=== PATIENT | female | born 1955 | race Caucasian/White ===

== ENCOUNTER 2017-07-06 21:53 | Inpatient (IN) | payer OTHER, MEDICARE ==
[~2017-07-06 21:53] MED LIST: ISOVUE-370 76%-LOCM 1 ML ONE
[2017-07-06] MEDS ORDERED: Clindamycin/D5W 900 mg/50 ml Premix Bag ONE (23:55)
[2017-07-07 01:17] VITALS: BMI 32.5
[2017-07-07] MEDS ORDERED: Ondansetron ODT 4 MG TAB SL PRN (01:43)
[2017-07-07] MEDS ORDERED: Ondansetron HCl/PF 4 MG/2 ML Vial IVP PRN (01:43)
[2017-07-07] MEDS ORDERED: Sodium Chloride 0.9% 1,000 ML IV SCH (01:45)
[2017-07-07] MEDS ORDERED: Acetaminophen 650 MG Suppository PR PRN (03:03)
[2017-07-07] MEDS: Sodium Chloride 0.9% 1,000 ML IV SCH ×2 (03:22→14:32)
[2017-07-07] MEDS: Morphine PF 1 MG/ML SYR IVP PRN ×2 (03:30→11:16)
[2017-07-07] MEDS: Acetaminophen 325 MG TAB PO PRN ×4 (03:36→22:24)
--- NOTE | 2017-07-07 04:58 | HP ---
PRIMARY CARE PHYSICIAN: Dr. Donna Che in [place], [place]. CHIEF COMPLAINT: Jaw swelling. HISTORY OF PRESENT ILLNESS: Ms. Cardoza is a pleasant 61-year-old lady, who was seen at [facility] on 07/07/2017 following transfer from the emergency room at [facility]. She reports that she has had swelling of her jaw for the last 5 days. She was started on Bactrim-DS. Shortly after starting Bactrim, she developed nausea, vomiting, and diarrhea. She reports multiple bowel movements a day. She denies any current fevers, but reports that she may have had fevers over the couple of days. She denies any chest pain or shortness of breath. She went to the emergency room at [facility]. She had drainage of her abscess, but it was incomplete. She was transferred here for further management. She reports pain over the jaw, dull and aching, 7/10, nonradiating, accompanied by nausea and vomiting. No known aggravating or relieving factors. REVIEW OF SYSTEMS: The following complete review of systems was negative, unless otherwise mentioned in the HPI or below: Constitutional: Weight loss or gain, sense of well-being, ability to conduct usual activities, exercise tolerance. Skin/Breast: Rash, itching, changes in hair growth or loss, nail changes, breast lumps, tenderness, swelling, nipple discharge. Eyes: Vision, double vision, tearing, blind spots, pain. ENT/Mouth: Headaches (location, time of onset, duration, precipitating factors) , vertigo, lightheadedness, injury. Vision, double vision, tearing, blind spots , pain, nose bleeding, colds, obstruction, discharge, dental difficulties, gingival bleeding, dentures, neck stiffness, pain, tenderness, masses in thyroid or other areas. Cardiovascular: Precordial pain, substernal distress, palpitations, syncope, dyspnea on exertion, orthopnea, nocturnal paroxysmal dyspnea, edema, cyanosis, hypertension, heart murmurs, varicosities, phlebitis, claudication. Respiratory: Pain, shortness of breath, wheezing, stridor, cough, hemoptysis, fever or night sweats. Gastrointestinal: Poor appetite, dysphagia, indigestion, abdominal pain, heartburn, eructation, nausea, vomiting, hematemesis, jaundice, constipation, or diarrhea, abnormal stools (isreal-colored, tarry, bloody, greasy, foul smelling ), flatulence, hemorrhoids, recent changes in bowel habits. Genitourinary: Urgency, frequency, dysuria, nocturia, hematuria, polyuria, oliguria, unusual (or change in) color of urine, stones, hesitancy, change in size of stream, dribbling, acute retention or incontinence, libido, potency. Musculoskeletal: Pain, swelling, redness or heat of muscles or joints, limitation of motion, muscular weakness, atrophy, cramps. Neurologic/Psychiatric: Convulsions, paralyses, tremor, incoordination, paresthesias, difficulties with memory of speech, sensory or motor disturbances , or muscular coordination (ataxia, tremor), emotional problems, anxiety, depression, previous psychiatric care, unusual perceptions, hallucinations. Allergy/Immunologic: Skin rash, anemia, bleeding tendency, polydipsia, polyuria , intolerance to heat or cold. PAST MEDICAL HISTORY: Significant for hypothyroidism, dyslipidemia. PAST SURGICAL HISTORY: Significant for bilateral eye surgery and hysterectomy. PSYCHIATRIC HISTORY: Significant for anxiety. SOCIAL HISTORY: The patient denies any current tobacco use, alcohol use, or recreational drug use. FAMILY HISTORY: No family history of coronary artery disease. ALLERGIES: No known drug allergies. CURRENT MEDICATIONS: Atorvastatin 40 mg daily, levothyroxine 75 mcg daily, Lexapro 10 mg daily, fenofibrate 160 mg daily. PHYSICAL EXAMINATION: GENERAL: Ms. Cardoza is awake and alert, not in acute distress. VITAL SIGNS: Blood pressure is 121/63, pulse is 84. She is breathing at rate of 16, and saturating 96% on room air. Her T-max in the emergency room was 99 degrees Fahrenheit. EYES: No scleral icterus. No conjunctival pallor. ENT: Dry mucosal membranes, no oropharyngeal erythema or exudates. NECK: Supple, nontender, normal range of movement. Trachea is midline. RESPIRATORY: Accessory muscles of breathing are not active. Chest wall movements are symmetric bilaterally. LUNGS: Clear to auscultation without wheeze, rhonchi, or crepitations. CARDIOVASCULAR: S1 and S2 are heard, regular. Peripheral pulses are palpable. No carotid bruit, no pericardial rub. ABDOMEN: Soft, nontender, bowel sounds are heard, no hepatomegaly, no splenomegaly. NEUROLOGIC: Cranial nerves II through XII are intact. Deep tendon reflexes are 2+. MUSCULOSKELETAL: Power is 5/5 in all 4 extremities. Normal range of movement at all major extremity joints. LYMPHATIC: No cervical lymphadenopathy. SKIN: Abscess over her jaw, draining pus. No other rashes or subcutaneous nodules. PSYCHIATRIC: Normal mood, normal affect. Patient is oriented to person, place , and time. LABORATORY DATA: Ms. Cardoza's labs and investigations were reviewed. She has a normal white count, hemoglobin 13.9, and platelet count 329,000. Sodium and potassium are normal. She has a decreased carbon dioxide of 17 and elevated blood urea nitrogen of 23. Creatinine is elevated at 1.15. Total bilirubin is normal. AST and ALT are elevated at 38 and 58. Alkaline phosphatase level is normal. ASSESSMENT AND PLAN: Ms. Cardoza is a pleasant 61-year-old lady, who was seen at [facility] on 07/07/2017. Her problem list includes: 1. Jaw abscess: Ms. Cardoza will be admitted to the hospital. Her case has been discussed by the emergency room physician with oral maxillofacial surgeon, who has recommended the patient be started on clindamycin. She has already received a dose of clindamycin. She also had a CT scan of the neck, report is pending. 2. Nausea and vomiting: This appears to have improved. 3. Diarrhea: It started after she was started on antibiotics. We will check stool cultures and Clostridium difficile screen. 4. Abnormal liver function tests: Isolated transaminitis, likely secondary to rhabdomyolysis. We will recheck liver function tests and check her CK level as well. 5. Dyslipidemia: Continue statins for now. 6. Hypothyroidism: Appears to be stable, continue Synthroid. Many thanks for allowing me to participate in your patient's care. Please feel free to contact me with any questions or concerns. LEVEL OF RISK: Moderate. LEVEL OF COMPLEXITY: Moderate. MTDD
[2017-07-07 05:25] LABS: #Basophils 0.1 thou/uL (0.0-0.2); #Eosinphils 0.1 thou/uL (0.0-0.7); #Lymphocytes 2.4 thou/uL (1.20-3.40); #Monocytes 0.5 thou/uL (0.11-0.59); #Neutrophils 2.9 thou/uL (1.40-6.50); %Basophils 1.4 % (0.0-1.0); %Eosinophils 1.7 % (0.0-10.0); %Lymphocytes 40.6 % (21.0-51.0); %Monocytes 8.5 % (0.0-10.0); Hematocrit 34.3 % (36.0-47.0); Mean Platelet Volume 6.8 fL (7.4-10.4); Red Blood Cell (RBC) Count 3.68 mill/uL (4.20-5.40)
[2017-07-07 05:41] LABS: Anion Gap 11 mmol/L (10-20); BUN (Urea Nitrogen) 21 mg/dL (9.8-20.1); Calc. Creatinine Clearance 94 mL/min (70-130); Calcium 8.8 mg/dL (7.8-10.44); Carbon Dioxide 22 mmol/L (22-29); Chloride 108 mmol/L (98-107); Estimated GFR-MDRD 68
[2017-07-07 06:05] LABS: ALT (SGPT) 41 U/L (8-55); AST (SGOT) 27 U/L (5-34); Alkaline Phosphatase 62 U/L (40-150); Bilirubin, Direct 0.2 mg/dL (0.1-0.3); Bilirubin, Total 0.4 mg/dL (0.2-1.2); CK (CPK) 88 U/L (29-168); Protein, Total 6.5 g/dL (6.0-8.3)
[2017-07-07] MEDS: Clindamycin/D5W 900 MG in Premix Bag 1 BAG IVPB SCH ×3 (06:28→22:19)
[2017-07-07] MEDS: Enoxaparin Sodium 40 MG/0.4 ML SYRINGE SC SCH (08:38)
--- NOTE | 2017-07-07 10:25 | PDOC.EVN ---
Event Note - Event Note Event Note: Pt seen earlier on rounds. mental sbcess examined, imaging reviewed. OMFS consult already enetered. Pt tolerating clinda ok. will followup on results
--- NOTE | 2017-07-07 10:41 | CT ---
PRELIMINARY REPORT/[facility]/EMERGENCY AFTER HOURS PROCEDURE: EXAM: CT Neck With Intravenous Contrast CLINICAL HISTORY: 61 years old, female; Signs and symptoms; Abscess, cutaneous; Patient HX: Chin abscess TECHNIQUE: Axial computed tomography images of the neck with intravenous contrast. CONTRAST: 70 mL of ISOVUE administered intravenously. COMPARISON: No relevant prior studies available. FINDINGS: Nasopharynx: Normal. Oropharynx: Normal. No significant tonsillar enlargement. No peritonsillar abscess. Hypopharynx: Normal. Larynx: Normal. Normal epiglottis. Trachea: Normal. Retropharyngeal space: Normal. Submandibular/parotid glands: Normal. Glands are normal in size. Thyroid: Enlarged thyroid gland, extending inferiorly into the anterior mediastinum, without definite focal nodules. Bones/joints: No acute fracture. Soft tissues: Increased attenuation in the right anterior mandibular subcutaneous tissue, with minima l overlying skin thickening and irregularity, most compatible with infection/cellulitis. No abscess. Vasculature: Normal. Lymph nodes: Several small lymph nodes within the anterior and posterior cervical chains, likely reac tive. Sinuses: Left maxillary sinusitis. Lung apices: Normal as visualized. IMPRESSION: 1. Increased attenuation in the right anterior mandibular subcutaneous tissue, with minimal overlying skin thickening and irregularity, most compatible with infection/cellulitis. No abscess. 2. Enlarged thyroid gland, extending inferiorly into the anterior mediastinum, without definite focal nodules. Consider further evaluation with sonography. 3. Incidental/non-acute findings are described above. Thank you for allowing us to participate in the care of your patient. Dictated and Authenticated by: Nolberto Hurt MD 07/07/2017 12:49 AM Central Time ([place] & [place]) FINAL REPORT CT OF THE NECK WITH IV CONTRAST: Date: 07/07/17 COMPARISON: None. HISTORY: Pain and swelling in the region of the chin, assess for abscess. FINDINGS: I agree with the preliminary [facility] report. There is partial opacification of the maxillary sinus on the left. There are a few opacified inferior mastoid air cells on the right. Retroantral and parapharyngeal fat is clear bilaterally. The parotid and submandibular glands are grossly unremarkable. The tonsillar pillars, oral cavity, epiglottis, and preepiglottic fat, hyoid bone, cricoid cartilage, and region of the thyroid cartilage appear unremarkable. Thyroid gland is enlarged with a component which extends into the superior mediastinum anteriorly. There is a focal area of prominent soft tissue swelling with skin thickening and stranding of the sub cutaneous fat anteriorly in the perimandibular region on the right just off midline. There is no asso ciated abscess seen. There is a focal area of outward convexity in the region of the skin surface sug gesting an associated cutaneous abnormality. Findings are most consistent with an inflammatory/infect ious cellulitic process. This does not appear to be odontogenic in nature. Mildly prominent bilateral Level IIA lymph nodes are noted, right greater than left, likely reactive in nature. Vascular structures appear patent. Imaged lung apices appear grossly unremarkable. No acute osseous a bnormality. IMPRESSION: Right anterior perimandibular subcutaneous inflammatory change with no discrete abscess seen. Enlarge d thyroid gland with anterior extension into the mediastinum. POS: CRISTELAH
[2017-07-07] MEDS: Famotidine/PF 20 mg/2ml Vial SLOW IVP SCH (12:41)
--- NOTE | 2017-07-08 02:19 | CON ---
DATE OF CONSULTATION: 07/06/2017 TIME OF CONSULTATION: 10:00 a.m. HISTORY OF PRESENT ILLNESS: This is a 61-year-old white female with a 5-day history of lip and chin area swelling, pain. She also had nausea, vomiting. I was seen at [facility] ER, where she was f ound to have a lower lip abscess. Attempted drainage was done at the bedside in the ER, but sarah lozano felt she could not get complete adequate drainage as well as patient has surrounding cellulitis, an d nausea, vomiting, so was transferred to [facility] for continued care and IV antibiotics. Marcus steele was admitted by the hospitalist service and placed on IV antibiotics. PHYSICAL EXAMINATION: The patient has a carbuncle right chin with moderate amount of surrounding ranjan thema. There is active purulence draining from the carbuncle, it can easily be expressed with manual pressure. It does appear to be a stab incision in the center of the carbuncle. Otherwise, the nilda ent is awake, alert, oriented x3. She is in no acute distress. Her vital signs are stable. She is afebrile. Dentition appears intact without any decayed teeth or periodontal disease. CT scan of the neck shows no drainable fluid collection. ASSESSMENT: This is a 61-year-old female with a chin carbuncle likely methicillin resistant staphylo coccus aureus. PLAN: 1. We will continue clindamycin 900 mg IV q.6 hours. 2. Compression of wound and warm compress throughout the day. N.p.o. after midnight tonight. We wi ll reassess tomorrow, if any additional surgical drainage will be needed.
[2017-07-08 04:52] LABS: #Basophils 0.1 thou/uL (0.0-0.2); #Eosinphils 0.2 thou/uL (0.0-0.7); #Lymphocytes 2.5 thou/uL (1.20-3.40); #Monocytes 0.4 thou/uL (0.11-0.59); #Neutrophils 2.1 thou/uL (1.40-6.50); %Basophils 1.4 % (0.0-1.0); %Eosinophils 3.6 % (0.0-10.0); %Monocytes 7.9 % (0.0-10.0); Hematocrit 34.1 % (36.0-47.0); Mean Platelet Volume 6.7 fL (7.4-10.4); Red Blood Cell (RBC) Count 3.65 mill/uL (4.20-5.40); White Blood Cell (WBC) Count 5.3 thou/uL (4.8-10.8)
[2017-07-08 05:10] LABS: Anion Gap 11 mmol/L (10-20); BUN (Urea Nitrogen) 14 mg/dL (9.8-20.1); Calc. Creatinine Clearance 123 mL/min (70-130); Calcium 8.9 mg/dL (7.8-10.44); Carbon Dioxide 23 mmol/L (22-29); Chloride 110 mmol/L (98-107); Estimated GFR-MDRD Greater than 90
[2017-07-08] MEDS: Sodium Chloride 0.9% 1,000 ML IV SCH (05:32)
[2017-07-08] MEDS: Clindamycin/D5W 900 MG in Premix Bag 1 BAG IVPB SCH ×3 (05:32→21:48)
[2017-07-08] MEDS: Acetaminophen 325 MG TAB PO PRN ×2 (05:36→20:52)
[2017-07-08] MEDS: Famotidine/PF 20 mg/2ml Vial SLOW IVP SCH (09:14)
--- NOTE | 2017-07-08 12:53 | PDOC.PN ---
- Subjective Encounter Start Date: 07/08/17 Encounter Start Time: 11:50 Patient seen and examined. No new complaints. No overnight events, pt feels improvement - Objective MAR Reviewed: Yes Vital Signs & Weight: Vital Signs (12 hours) Temp Pulse Resp BP Pulse Ox 07/08/17 11:50 98.0 F 80 16 122/78 95 07/08/17 07:46 98.8 F 75 16 07/08/17 07:36 98.5 F 75 16 112/73 94 L 07/08/17 03:57 98.8 F 75 16 102/58 L 92 L Weight Weight 184 lb I&O: 07/07/17 07/08/17 07/09/17 06:59 06:59 06:59 Intake Total 1250 1300 Balance 1250 1300 Result Diagrams: 07/08/17 04:17 07/08/17 04:17 Phys Exam - Physical Examination Constitutional: NAD HEENT: PERRLA, moist MMs, sclera anicteric jaw abscess and erythema improving Neck: no JVD, supple Respiratory: no wheezing, no rales, no rhonchi Cardiovascular: RRR, no significant murmur, no rub Gastrointestinal: soft, non-tender, no distention, positive bowel sounds Musculoskeletal: no edema, pulses present Neurological: non-focal, normal sensation, moves all 4 limbs Lymphatic: no nodes Psychiatric: normal affect, A&O x 3 Skin: no rash, normal turgor Dx/Plan (1) Abscess, jaw Code(s): M27.2 - INFLAMMATORY CONDITIONS OF JAWS Status: Acute (2) Diarrhea Code(s): R19.7 - DIARRHEA, UNSPECIFIED Status: Resolved (3) Nausea & vomiting Code(s): R11.2 - NAUSEA WITH VOMITING, UNSPECIFIED Status: Resolved (4) Dyslipidemia Code(s): E78.5 - HYPERLIPIDEMIA, UNSPECIFIED Status: Chronic (5) Hypothyroidism Code(s): E03.9 - HYPOTHYROIDISM, UNSPECIFIED Status: Chronic (6) Obesity (BMI 30.0-34.9) Code(s): E66.9 - OBESITY, UNSPECIFIED Status: Chronic (7) Anxiety and depression Code(s): F41.8 - OTHER SPECIFIED ANXIETY DISORDERS Status: Chronic - Plan cont current plan of care, continue antibiotics * continue IV antibiotics as ordered * oral surgeon will look at again today to see if she needs any I & d * medication reviewed as below * symptomatic treatment * pain control. Review of Systems - Review of Systems ENT: negative: Ear Pain, Ear Discharge, Nose Pain, Nose Discharge, Nose Congestion, Mouth Pain, Mouth Swelling, Throat Pain, Throat Swelling, Other Respiratory: negative: Cough, Dry, Shortness of Breath, Hemoptysis, SOB with Excertion, Pleuritic Pain, Sputum, Wheezing Cardiovascular: negative: Chest Pain, Palpitations, Orthopnea, Paroxysmal Noc. Dyspnea, Edema, Light Headedness, Other Gastrointestinal: negative: Nausea, Vomiting, Abdominal Pain, Diarrhea, Constipation, Melena, Hematochezia, Other Genitourinary: negative: Dysuria, Frequency, Incontinence, Hematuria, Retention , Other Musculoskeletal: negative: Neck Pain, Shoulder Pain, Arm Pain, Back Pain, Hand Pain, Leg Pain, Foot Pain, Other Skin: negative: Rash, Lesions, Kvng, Bruising, Other - Medications/Allergies Allergies/Adverse Reactions: Allergies Allergy/AdvReac Type Severity Reaction Status Date / Time No Known Allergies Allergy Unverified 07/07/17 01:13 Medications: Current Medications Acetaminophen (Tylenol) 650 mg PO Q4H PRN PRN Reason: Headache/Fever or Pain Last Admin: 07/08/17 05:36 Dose: 650 mg Acetaminophen (Tylenol) 650 mg KS Q4H PRN PRN Reason: Headache/Fever or Pain Famotidine (Pepcid) 20 mg SLOW IVP Q12HR [facility] Last Admin: 07/08/17 09:14 Dose: 20 mg Clindamycin Phosphate/Dextrose (900 mg/ Device) 50 mls @ 100 mls/hr IVPB Q8HR [facility] Last Admin: 07/08/17 05:32 Dose: 50 mls Sodium Chloride (Normal Saline 0.9%) 1,000 mls @ 75 mls/hr IV .[id number] ROMEL Last Admin: 07/08/17 05:32 Dose: 1,000 mls Sodium Chloride (Flush - Normal Saline) 10 ml IVF Q12HR [facility] Sodium Chloride (Flush - Normal Saline) 10 ml IVF PRN PRN PRN Reason: Saline Flush
[2017-07-08] MEDS ORDERED: Zolpidem Tartrate 5 MG TAB PO PRN (12:54)
[2017-07-08] MEDS ORDERED: Eucerin (Mineral Oil/Petrolatum,White) 30 gm Jar TOP PRN (12:54)
[2017-07-08] MEDS ORDERED: Ondansetron HCl/PF 4 MG/2 ML Vial IVP PRN (12:54)
[2017-07-08] MEDS ORDERED: hydrALAZINE 20 MG/ML VIAL SLOW IVP PRN (12:54)
[2017-07-08] MEDS ORDERED: Milk Of Magnesia 30 ML UDCUP PO PRN (12:54)
[2017-07-08] MEDS ORDERED: Ondansetron ODT 4 MG TAB PO PRN (12:54)
[2017-07-08] MEDS ORDERED: Sodium Chloride 0.65% Nasal 44 ML BOT EA NARE PRN (12:54)
[2017-07-08] MEDS ORDERED: Senokot 8.6 MG TAB PO PRN (12:54)
[2017-07-08] MEDS ORDERED: Loratadine 10 MG TAB PO PRN (12:54)
[2017-07-08] MEDS ORDERED: Artificial Tear Sol 15 ML BOT EA EYE PRN (12:54)
[2017-07-08] MEDS ORDERED: HYDROcodone/Acetaminophen 5/325 mg Tablet PO PRN (12:54)
[2017-07-08] MEDS ORDERED: Loperamide HCl 2 MG CAP PO PRN (12:54)
[2017-07-08] MEDS ORDERED: Mag-Al 1200 mg/1200 mg/30 ML UDCUP PO PRN (12:54)
[2017-07-08] MEDS ORDERED: Chloraseptic Spray 180 ml Bottle PO PRN (12:54)
[2017-07-08] MEDS ORDERED: Diabetic Tussin 200 MG/10 ML UDCUP PO PRN (12:54)
[2017-07-08] MEDS ORDERED: Enoxaparin Sodium 40 MG/0.4 ML SYRINGE SC SCH (14:30)
[2017-07-08] MEDS: Enoxaparin Sodium 40 MG/0.4 ML SYRINGE SC SCH (16:19)
[2017-07-08] MEDS: Famotidine 20 MG TAB PO SCH (20:52)
[2017-07-08] MEDS: Saccharomyces boulardii 250 MG CAP PO SCH (20:52)
[2017-07-09] MEDS: Clindamycin/D5W 900 MG in Premix Bag 1 BAG IVPB SCH ×3 (06:33→22:24)
[2017-07-09] MEDS: Acetaminophen 325 MG TAB PO PRN ×3 (06:33→20:39)
[2017-07-09] MEDS: Famotidine 20 MG TAB PO SCH ×2 (10:02→20:35)
[2017-07-09] MEDS: Levothyroxine Sodium 75 MCG TAB PO SCH (10:02)
[2017-07-09] MEDS: Atorvastatin Calcium 40 MG TAB PO SCH (10:02)
[2017-07-09] MEDS: Saccharomyces boulardii 250 MG CAP PO SCH ×2 (10:03→20:35)
[2017-07-09] MEDS: Escitalopram Oxalate 10 mg Tablet PO SCH (10:03)
[2017-07-09] MEDS: Enoxaparin Sodium 40 MG/0.4 ML SYRINGE SC SCH (10:05)
[2017-07-09] MEDS: Fenofibrate Nanocrystallized 145 MG TAB PO SCH (10:11)
--- NOTE | 2017-07-09 12:05 | PRG ---
DATE OF SERVICE: 07/09/2017 SUBJECTIVE: No acute 24-hour events. The patient is voiding, ambulating, tolerating p.o., has minimal pain. No fever or chills overnight. OBJECTIVE: The patient's vital signs are stable. She is afebrile. Her white count has remained stable at 5. Other notable labs, culture of wound has grown Staph aureus. We are currently waiting on sensitivities. There is markedly decreased cellulitis around the wound. There is minimal purulent drainage today. This is 100% improvement over the last couple of days. Otherwise, exam is within normal limits. ASSESSMENT: Improving status post drainage of Staph skin abscess. PLAN: We will continue IV antibiotics. Once sensitivities come back, we will switch to oral antibiotics for 1 week. At that time, the patient is okay for discharge once we are able to switch over to oral antibiotics hopefully within the next 24 hours. [facility] HOSPITALRoseanna
--- NOTE | 2017-07-09 12:22 | PDOC.PN ---
- Subjective Encounter Start Date: 07/09/17 Encounter Start Time: 08:05 Patient seen and examined. No new complaints. No overnight events - Objective MAR Reviewed: Yes Vital Signs & Weight: Vital Signs (12 hours) Temp Pulse Resp BP Pulse Ox 07/09/17 08:05 98.3 F 74 16 117/77 94 L 07/09/17 07:43 97.9 F 79 16 07/09/17 06:38 97.9 F 79 16 118/72 95 Weight Weight 184 lb I&O: 07/08/17 07/09/17 07/10/17 06:59 06:59 06:59 Intake Total 1300 1000 Balance 1300 1000 Result Diagrams: 07/08/17 04:17 07/08/17 04:17 Phys Exam - Physical Examination Constitutional: NAD HEENT: PERRLA, moist MMs, sclera anicteric Neck: no JVD, supple Respiratory: no wheezing, no rales, no rhonchi Cardiovascular: RRR, no significant murmur, no rub Gastrointestinal: soft, non-tender, no distention, positive bowel sounds Musculoskeletal: no edema, pulses present Neurological: non-focal, normal sensation, moves all 4 limbs Psychiatric: normal affect, A&O x 3 Skin: no rash, normal turgor Dx/Plan (1) Abscess, jaw Code(s): M27.2 - INFLAMMATORY CONDITIONS OF JAWS Status: Acute (2) Diarrhea Code(s): R19.7 - DIARRHEA, UNSPECIFIED Status: Resolved (3) Nausea & vomiting Code(s): R11.2 - NAUSEA WITH VOMITING, UNSPECIFIED Status: Resolved (4) Dyslipidemia Code(s): E78.5 - HYPERLIPIDEMIA, UNSPECIFIED Status: Chronic (5) Hypothyroidism Code(s): E03.9 - HYPOTHYROIDISM, UNSPECIFIED Status: Chronic (6) Obesity (BMI 30.0-34.9) Code(s): E66.9 - OBESITY, UNSPECIFIED Status: Chronic (7) Anxiety and depression Code(s): F41.8 - OTHER SPECIFIED ANXIETY DISORDERS Status: Chronic - Plan cont current plan of care, continue antibiotics * continue current IV antibiotics * await sensitivity result * medication reviewed as below * symptomatic treatment * stable * plan for discharge tomorrow . Review of Systems - Review of Systems ENT: negative: Ear Pain, Ear Discharge, Nose Pain, Nose Discharge, Nose Congestion, Mouth Pain, Mouth Swelling, Throat Pain, Throat Swelling, Other Respiratory: negative: Cough, Dry, Shortness of Breath, Hemoptysis, SOB with Excertion, Pleuritic Pain, Sputum, Wheezing Cardiovascular: negative: Chest Pain, Palpitations, Orthopnea, Paroxysmal Noc. Dyspnea, Edema, Light Headedness, Other Gastrointestinal: negative: Nausea, Vomiting, Abdominal Pain, Diarrhea, Constipation, Melena, Hematochezia, Other Genitourinary: negative: Dysuria, Frequency, Incontinence, Hematuria, Retention , Other Musculoskeletal: negative: Neck Pain, Shoulder Pain, Arm Pain, Back Pain, Hand Pain, Leg Pain, Foot Pain, Other - Medications/Allergies Allergies/Adverse Reactions: Allergies Allergy/AdvReac Type Severity Reaction Status Date / Time No Known Allergies Allergy Unverified 07/07/17 01:13 Medications: Current Medications Acetaminophen (Tylenol) 650 mg PO Q4H PRN PRN Reason: Headache/Fever or Pain Last Admin: 07/09/17 10:16 Dose: 650 mg Hydrocodone Bitart/Acetaminophen ([place] 5/325) 1 tab PO Q4H PRN PRN Reason: Moderate Pain (4-6) Al Hydroxide/Mg Hydroxide (Maalox) 15 ml PO Q4H PRN PRN Reason: Heartburn or Indigestion Artificial Tears (Tears Renewed 15ml Bottle) 0 drop EA EYE PRN PRN PRN Reason: Dry Eyes Aspirin (Aspirin Chewable) 81 mg PO DAILY [facility] Last Admin: 07/09/17 10:02 Dose: 81 mg Atorvastatin Calcium (Lipitor) 40 mg PO DAILY [facility] Last Admin: 07/09/17 10:02 Dose: 40 mg Enoxaparin Sodium (Lovenox) 40 mg SC 0900 [facility] Last Admin: 07/09/17 10:05 Dose: 40 mg Escitalopram Oxalate (Lexapro) 10 mg PO DAILY [facility] Last Admin: 07/09/17 10:03 Dose: 10 mg Famotidine (Pepcid) 20 mg PO BID [facility] Last Admin: 07/09/17 10:02 Dose: 20 mg Fenofibrate (Tricor) 145 mg PO DAILY [facility] Last Admin: 07/09/17 10:11 Dose: 145 mg Guaifenesin (Robitussin Sf) 200 mg PO Q4H PRN PRN Reason: Cough Hydralazine HCl (Apresoline) 10 mg SLOW IVP Q4H PRN PRN Reason: Systolic BP > 180 Clindamycin Phosphate/Dextrose (900 mg/ Device) 50 mls @ 100 mls/hr IVPB Q8HR [facility] Last Admin: 07/09/17 06:33 Dose: 50 mls Levothyroxine Sodium (Synthroid) 75 mcg PO DAILY [facility] Last Admin: 07/09/17 10:02 Dose: 75 mcg Loperamide HCl (Imodium) 2 mg PO PRN PRN PRN Reason: Diarrhea/Loose Stools Loratadine (Claritin) 10 mg PO DAILYPRN PRN PRN Reason: Sinus Symptoms Magnesium Hydroxide (Milk Of Magnesium) 30 ml PO DAILYPRN PRN PRN Reason: Constipation Mineral Oil/White Petrolatum (Eucerin Cream) 0 gm TOP BIDPRN PRN PRN Reason: Dry Skin Ondansetron HCl (Zofran Odt) 4 mg PO Q6H PRN PRN Reason: Nausea/Vomiting Ondansetron HCl (Zofran) 4 mg IVP Q6H PRN PRN Reason: Nausea/Vomiting Last Admin: 07/08/17 18:47 Dose: 4 mg Phenol (Chloraseptic [place] 180 Ml Bot) 0 ml PO PRN PRN PRN Reason: Sore Throat Saccharomyces Boulardii (Florastor) 250 mg PO BID [facility] Last Admin: 07/09/17 10:03 Dose: 250 mg Senna (Senokot) 2 tab PO HSPRN PRN PRN Reason: Constipation Sodium Chloride (Flush - Normal Saline) 10 ml IVF Q12HR [facility] Last Admin: 07/09/17 10:11 Dose: 10 ml Sodium Chloride (Flush - Normal Saline) 10 ml IVF PRN PRN PRN Reason: Saline Flush Sodium Chloride ([place] Nasal [place] 0.65%) 0 ml EA NARE QIDPRN PRN PRN Reason: Nasal Congestion Zolpidem Tartrate (Ambien) 5 mg PO HSPRN PRN PRN Reason: Insomnia
[2017-07-10] MEDS: Clindamycin/D5W 900 MG in Premix Bag 1 BAG IVPB SCH ×2 (05:29→13:44)
[2017-07-10] MEDS: Famotidine 20 MG TAB PO SCH (08:21)
[2017-07-10] MEDS: Saccharomyces boulardii 250 MG CAP PO SCH (08:21)
[2017-07-10] MEDS: Levothyroxine Sodium 75 MCG TAB PO SCH (08:21)
[2017-07-10] MEDS: Atorvastatin Calcium 40 MG TAB PO SCH (08:21)
[2017-07-10] MEDS: Enoxaparin Sodium 40 MG/0.4 ML SYRINGE SC SCH (08:22)
[2017-07-10] MEDS: Fenofibrate Nanocrystallized 145 MG TAB PO SCH (08:22)
[2017-07-10] MEDS: Escitalopram Oxalate 10 mg Tablet PO SCH (08:22)
[2017-07-10] MEDS: Acetaminophen 325 MG TAB PO PRN ×2 (08:30→17:31)
--- NOTE | 2017-07-10 15:46 | DIS ---
DATE OF ADMISSION: 07/06/2017 DATE OF DISCHARGE: 07/10/2017 PRIMARY CARE PHYSICIAN: [facility] call admission. DISCHARGE DISPOSITION: Home. PRIMARY DISCHARGE DIAGNOSES: Jaw abscess, nausea, vomiting and diarrhea, likely due to gastroenterit is, noninfectious, improved. SECONDARY DISCHARGE DIAGNOSES: Obesity with BMI of 32, hypothyroidism, dyslipidemia, anxiety and dep ression. PRIMARY PROCEDURE/OPERATION: None. RADIOLOGICAL INVESTIGATION: Neck CT scan on admission showed right anterior mandibular subcutaneous tissue swelling, no abscess. SIGNIFICANT LABORATORY DATA: WBC 5.3, hemoglobin 11.0 and platelet 265. Sodium 140, potassium 4.1, BUN 14, creatinine 0.65 and calcium 8.9. LFT normal. Stool for infection workup is negative. Cultu re from chin abscess grew Staph aureus. DISCHARGE MEDICATIONS: Clindamycin 300 mg p.o. q.6 hourly for 10 days, Florastor 250 mg p.o. b.i.d. for 10 days, aspirin 81 mg p.o. daily, Lipitor 40 mg p.o. daily, Lexapro 10 mg p.o. daily, TriCor 160 mg p.o. daily, Synthroid 75 mcg p.o. daily and ranitidine 150 mg p.o. b.i.d. CONTRAINDICATIONS: None. CODE STATUS: FULL CODE. INPATIENT ROAD PRODUCTION GENERAL MANAGER: Dr. Snyder was consulted while in hospital. TEST RESULTS PENDING ON DISCHARGE: None. ALLERGIES: No known drug allergies. DISCHARGE PLAN: Post hospital, the patient is advised to follow up with Dr. Snyder as instructed. The patient will make appointment with primary care physician. HOSPITAL COURSE: A 61-year-old female who was admitted by Dr. Gallegos. Please see his H&P for further details. Patient was admitted for swelling, erythema and tenderness over her Jaw. The patient had cellulitis of jaw and we did a CT neck, which did not show any abscess, but it was draining some pus- like material from the site. Patient was taking outpatient basis Bactrim DS without any clinical imp rovement, and that is why we admitted this patient in the hospital and we treated her with IV clindam ycin. With IV clindamycin, patient had significant clinical improvement and on discharge, we changed to p.o. clindamycin. At this point, the patient does not need any surgical debridement. Dr. Justo nava, oral surgeon was following while in hospital and he was pleased with the patient's clinical improv ement. While in hospital, the patient remained afebrile, hemodynamically stable. The patient has re ceived during entire hospital course IV antibiotic therapy. On discharge, we are changing to clindam ycin p.o. and patient will have probiotic therapy as well. While in hospital, we checked stool for i nfection workup that came back negative The patient had mild gastroenteritis that was resolved by e time of discharge. Patient's pain is under control. Patient is ambulatory, tolerating p.o. well. Patient is seen and e xamined at bedside today. Review of systems reviewed with her is negative. PHYSICAL EXAMINATION: VITAL SIGNS: Currently, temperature 98.3, pulse 78, respiratory rate 18, saturation 94% and blood pr essure 134/85. Weight 184 pounds. GENERAL: The patient is currently alert and awake, in no acute distress. HEAD: Normocephalic and atraumatic. LUNGS: Clear to auscultation without any rhonchi or rales. CARDIAC: S1 and S2 regular without any murmur. ABDOMEN: Soft and benign without any tenderness. EXTREMITIES: No edema. NEUROLOGIC: Nonfocal examination. Overall, this patient is medically stable for discharge today.
[2017-07-10 21:40] VITALS: BP 124/85; TEMP 98.7
== END 2017-07-10 18:37 | disposition home or self-care (01) | DRG 158 ==
LOC: ERS 21:53 → SURG A 23:34
PROVIDERS: ADMIT Internal Medicine; ATTEND Internal Medicine
DX: M27.2 Inflammatory conditions of jaws (principal); L03.211 Cellulitis of face; B95.62 Methicillin resistant Staphylococcus aureus infection as the cause of diseases classified elsewhere; E03.9 Hypothyroidism, unspecified; E66.9 Obesity, unspecified; K52.29 Other allergic and dietetic gastroenteritis and colitis; Z68.32 Body mass index [BMI] 32.0-32.9, adult; E78.5 Hyperlipidemia, unspecified; F41.9 Anxiety disorder, unspecified; F41.8 Other specified anxiety disorders
CPT/HCPCS: 36415; 70492; 80048; 80076; 82550; 85025; 87015; 87045; 87046; 87070; 87205; 87324; 87449; 87899; 96365; A4216; J1650; J2274; J2405; J3490; S0028